=== PATIENT | male | born 1965 | race Caucasian/White ===

== ENCOUNTER 2016-05-10 22:01 | Emergency (ER) | payer OTHER ==
[2016-05-10 22:23] VITALS: BP 133/80; PULSE 85; RESP 16; TEMP 98.2; O2SAT 92
[2016-05-10] MEDS ORDERED: IBUPROFEN 200 MG TAB PO ONE (22:55)
[2016-05-10] MEDS ORDERED: HYDROCOD/APAP 5/325 PREPACK#6 BTL TAKEHOME ONE (23:22)
--- NOTE | 2016-05-10 23:23 | UCPHY ---
H & P Time Seen by Provider: 05/10/16 22:19 Patient Type: New HPI/ROS: This patient complains of right shoulder pain, neck pain and lumbar pain. He has been traveling a lot in the last 2 weeks and wonders a sleeping other beds might be contributing to his symptoms. He has also been caring luggage for these trips. However he does not remember any acute injury. Symptoms came on gradually over the past week he feels like the neck and shoulder discomfort are worse when he is lying down flat compared to sitting up in notes that certain movements will exacerbate the shoulder pain. He feels this is musculoskeletal in origin. He has been taking ibuprofen with partial improvement and notes no other exacerbating factors. He last had 400 mg of ibuprofen 2 hours prior to arrival. He states the shoulder pain at times has been up to 7/10 intensity is usually more mild to moderate. The lumbar pain currently is mild was moderate severity. ROS: No fevers. No fatigue. No other constitutional symptoms. HEENT no complaints. neuro: No headache. No numbness tingling or focal weakness. No bowel or bladder incontinence. Pulmonary: No pleuritic pain or dyspnea. Cardiovascular: No chest pain or heart palpitations. No nausea vomiting diaphoresis. Musculoskeletal - the patient reports that the lumbar pain is bilateral lumbar and mild midline discomfort as well but does not radiate to his legs. The right shoulder pain feels deep in the shoulder any points to the apex of the shoulder describing the pain. He feels the neck pain is bilateral paracervical region and mild in intensity slightly worse with forward flexion. He also complains of mild right hip pain that is minimal compared to moderate back discomfort and mild neck pain 10 point ROS is otherwise negative. Past Medical/Surgical History: Otherwise healthy on no meds Social History: Occasional alcohol. No drug use. Smoking Status: Never smoked Physical Exam: General Appearance: Alert, no distress. Eyes: Pupils equal and round no pallor or injection. ENT, Mouth: Mucous membranes moist. Neck: No midline tenderness. He has paraspinous cervical muscle tenderness right-sided more than left. Maintains full range of motion of his neck with mild increase in pain with forward flexion. No difficulty with lateral flexion. Supple with no meningismus. Respiratory: There are no retractions, lungs are clear to auscultation. No rales or rhonchi. No wheeze. Cardiovascular: Regular rate and rhythm. No murmur gallop or rub. No leg edema or tenderness Gastrointestinal: Abdomen is soft and nontender, no masses, bowel sounds normal. Neurological: GCS 15. He maintains normal light touch sensory exam upper and lower extremities and in the saddle area. No motor deficits. 5/5 strength bilateral upper and lower extremities. He has weak but symmetric biceps, or triceps, brachioradialis, patellar and Achilles DTRs bilaterally Skin: Warm and dry, no rashes. Back: Bilateral paraspinous muscular tenderness mild spasm left side. No sciatic notch tenderness. Straight leg raise is negative bilaterally. Musculoskeletal: Atraumatic Right shoulder: Normal in contour in appearance. He retains a full range of motion without significant change in his pain. Can externally rotate flex extend and abduct without difficulty. Psychiatric: Mood and affect are normal. DIFFERENTIAL DIAGNOSIS: After history and physical exam differential diagnosis was considered for neck strain, back strain, cervical radiculopathy to shoulder before, DJD to right shoulder, calcific tendinitis, viral syndrome, doubt cardiac or pulmonary process given lack of suggestive findings. Constitutional: Initial Vital Signs Temperature (C) 36.8 C 05/10/16 22:20 Heart Rate 85 05/10/16 22:20 Respiratory Rate 16 05/10/16 22:20 Blood Pressure 133/80 H 05/10/16 22:20 O2 Sat (%) 92 05/10/16 22:20 O2 Delivery Mode Room Air Allergies/Adverse Reactions: No Known Allergies Allergy (Unverified 05/10/16 22:23) Home Medications: Medication Instructions Recorded Hydrocodone/APAP 5/325 [Arjay 1 - 2 tab PO Q4PRN PRN #12 tab 05/10/16 5/325 (*)] Methocarbamol [Robaxin 750 mg (*)] 750 - 1,500 mg PO QID PRN #30 tab 05/10/16 Medical Decision Making - Diagnostics Imaging: Right shoulder x-ray: Normal the radiologist noted the right hemidiaphragm with elevated. Chest x-ray: Indication shoulder versus right upper chest pain question elevated hemidiaphragm-rule out abnormalities-normal by my interpretation, confirmed by the radiologist ED Course/Re-evaluation: Counseled patient regarding neck and low back strain is includes the most likely cause of his symptoms. He received an extra dose of ibuprofen with partial improvement. Will follow up with primary care physician for any ongoing symptoms understands need to go the emergency department for any worsening of symptoms - Data Points Medications Given: Discontinued Medications Hydrocodone Bitart/Acetaminophen (Arjay 5/325mg Prepack#6) 1 btl TAKEHOME EDNOW ONE Stop: 05/10/16 23:23 Last Admin: 05/10/16 23:25 Dose: 1 btl Ibuprofen (Motrin) 400 mg PO EDNOW ONE Stop: 05/10/16 22:56 Last Admin: 05/10/16 23:10 Dose: 400 mg Departure - Departure Disposition: Home, Routine, Self-Care Clinical Impression: Neck pain Shoulder pain Qualifiers: Laterality: right Chronicity: acute Qualified Code(s): M25.511 - Pain in right shoulder Low back pain Qualifiers: Chronicity: acute Back pain laterality: bilateral Sciatica presence: without sciatica Qualified Code(s): M54.5 - Low back pain Condition: Good Instructions: Low Back Strain (ED), Musculoskeletal Pain (ED) Additional Instructions: Diagnoses: 1. Right shoulder pain 2. Neck pain 3. Low back pain Plan: Ibuprofen 400-600 mg per 6 hours regularly for the next week then as needed. Methocarbamol muscle relaxants as needed. Vicodin or Tylenol as needed for pain. No driving alcohol or work on Vicodin. Starts daily stretches prior to taking muscle relaxants and Vicodin in the morning. 3-5 minutes each of: "Butterfly stretch," "Sphinx stretch", "pigeon stretch", and hamstring stretch. Avoid lifting more than 5-10 pounds until symptoms improve. Call your primary care physician for a followup appointment in 3-7 days. Go to the emergency department for worsening of your symptoms despite the treatment plan. Referrals: Jo Ann Tomas MD [Medical Doctor] - As per Instructions Prescriptions: Hydrocodone/APAP 5/325 [Arjay 5/325 (*)] 1 - 2 tab PO Q4PRN PRN #12 tab PRN Reason: Pain Methocarbamol [Robaxin 750 mg (*)] 750 - 1,500 mg PO QID PRN #30 tab PRN Reason: Muscle Spasms - PQRS PQRS Measurement: NA
== END 2016-05-10 23:37 | disposition home or self-care (01) ==
LOC: CED 22:01
DX: M25.511 Pain in right shoulder (principal); M54.2 Cervicalgia; M54.5 Low back pain
CPT/HCPCS: 71020-PO; 73030-PO; 99203-PO; G0463-PO